=== PATIENT | male | born 1955 | race Caucasian/White ===

== ENCOUNTER 2016-12-13 19:32 | Observation (INO) | payer OTHER ==
[~2016-12-13] VITALS: Ht 175.3 cm; Wt 63.6 kg
[2016-12-13 19:34] VITALS: BP 146/72
--- OUTSIDE RECORDS SUMMARY | 2016-12-13 19:45 | External Medical Summary Rpt ---
Author Author TEODORO Rowan, TEODORO Rowan Organization [employer] Address Unknown Phone Unavailable
--- OUTSIDE RECORDS SUMMARY | 2016-12-13 19:45 | External Medical Summary Rpt | CCD ---
Author Author [employer] Organization [employer] Address Unknown Phone Unavailable Purpose Continuity of Care Document - through 2016
--- OUTSIDE RECORDS SUMMARY | 2016-12-13 19:45 | External Medical Summary Rpt | CCD ---
Demographics Preferred Language Belarusian Marital Status Unknown Jew Affiliation Unknown Race Unknown Ethnic Group Unknown Author Author , TEODORO VALERIO Address Unknown Phone Immunization No patient found.
--- OUTSIDE RECORDS SUMMARY | 2016-12-13 19:45 | External Medical Summary Rpt | CCD ---
Demographics Preferred Language Turkish Marital Status Unknown Yazidism Affiliation Unknown Race Unknown Ethnic Group Unknown Author Author , TEODORO VALERIO Address Unknown Phone Immunization No patient found.
--- OUTSIDE RECORDS SUMMARY | 2016-12-13 19:45 | External Medical Summary Rpt | CCD ---
Author Author , TEODORO VALERIO Address Unknown Phone Purpose Continuity of Care Document - through 2016
--- OUTSIDE RECORDS SUMMARY | 2016-12-13 19:45 | External Medical Summary Rpt | CCD ---
Author Author , TEODORO VALERIO Address Unknown Phone [email or web address] Purpose Continuity of Care Document - through 2016
[2016-12-13 20:11] LABS: HEMOGLOBIN 14.7 g/dL (14.1-18.0); LYMPH # 2.3 K/mm3 (0.7-4.5); LYMPH % 38.1 % (10-50)
--- NOTE | 2016-12-13 20:35 | Emergency Room Report ---
History of Present Illness Time Seen by 2019 Presenting Problem in Triage Pt arrived:Walked Presenting Problem:PT STATES HE HAD JUST FINISHED EATING WHEN HE FELT A WEIGHT OF "500 LBS ON BOTH HIS SHOULDERS THAT CENTERED INTO HIS MID-STERNAL AREA" PT STATES THIS HAS HAPPENED BEFORE AND HE BECAME DIAPHORETIC WHEN IT DID. PT FURTHER STATES HE HAS SPOTS ON HIS LUNGS THAT HIS MD KNOWS ABOUT, AND HE HAS A HISTORY OF COPD. PT ALSO MENTIONS THAT HE HAS TO REPETIVELY CLEAR HIS THROAT TO CLEAR SPUTUM. 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 N Clinical Suspician of Infection? N Mental Status: 1 - Regular (Normal Baseline) Sepsis Risk:Possible Sepsis Risk Have you (or family members/close friends) recently traveled outside the [facility]? N If Yes, where/when: Have you had exposure to infectious disease within the past month? TB? Other? Specify: Comment The patient had a 45 minute episode of chest pain, bilateral arm heaviness, shortness of breath, diaphoresis, and nausea. It started about an hour before he arrived here. Symptoms have now resolved. He had finished eating when it started. He has had 2 previous similar episodes, seen in the emergency department in [place]. The last time was about a year ago. 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 He has never had an angiogram. He does not have any known heart problems. 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 He says he has had a couple of CAT scans, the most recent possibly in spring of this year. Again, at [facility]. He says on his latest CAT scan and they told him the masses had not changed in size. He does not know how big they were. He does not know whether they were described as large or small. He has chronic obstructive pulmonary disease. He is a former smoker. He does not have diabetes, hyperlipidemia, or hypertension. He does have a family history of heart disease. His brother at 45 years old earlier this year from a heart attack. PCP is Dr. Isidro. ALLERGIES Coded Allergies: No Known Allergies (12/13/16) Home Medications Reported Medications Tiotropium [place] (Spiriva Respimat) 2.5 MCG IH ONCE #4 Albuterol Sulfate (Ventolin Hfa) 0.09 MG IH PRN PRN BREATHING #18 History Medical History General Angina: No [place]: No Hypertension? No Hyperlipidemia? Yes CHF? No COPD? No Asthma? No CVA? No Seizures? No Diabetes? No GB Disease: No MRSA? No TB? No Cancer? No Immunization Hx Ped.Immunizations UTD Yes DT/Tetanus Unknown Surgical Hx Previous Surgery?Y URINARY STENT Social History Smoking Hx Smoker: Current Every Day Smoker Tobacco: Yes Type Cigarettes Packs/day < 1 Pack Alcohol Alcohol: No Review of Systems All Other Systems Reviewed and Negative Constitutional diaphoresis Respiratory cough (and congestion, chronic), shortness of breath Cardiovascular chest pain Gastrointestinal nausea Musculoskeletal see HPI (bilateral arm heaviness) Physical Exam Vital Signs Vital Signs Date Time Temp Pulse Resp B/P Pulse O2 O2 Flow FiO2 Ox Delivery Rate 12/13 235 77 12/13 2354 98.2 77 20 157/90 12/13 2354 93 ROOM AIR 12/13 232 98.0 83 24 129/72 93 12/13 2228 83 24 129/72 93 12/13 2119 98.0 75 24 141/81 94 12/13 1934 97.9 109 24 146/72 94 General Appearance no apparent distress Eye Exam - bilateral eye normal exam, bilateral eye PERRL, bilateral eye EOMI Ear, Nose, Throat hearing grossly normal, normal ENT inspection Neck normal inspection, non-tender, supple, full range of motion Respiratory Status Yes: trachea midline, chest symmetrical, non tender chest. No: respiratory distress. Lung Sounds bilateral: normal breath sounds, lungs clear. 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 No Results/Orders Laboratory Tests 12/13/16 2340: Troponin I 0.02 12/13/161929: Lactic Acid 2.0 12/13/161929: Sodium 138, Potassium 3.5, Chloride 102, Carbon Dioxide 25, BUN 18, Creatinine 1.0, Estimated Creat Clear 76, Estimated GFR (MDRD) 76, Glucose 134 H, Calcium 9.6, Total Bilirubin 0.3, AST 23, ALT 34, Alkaline Phosphatase 87, Creatine Kinase 72, CK-MB (CK-2) Rel Index 0.7, CK and CKMB Interp < 0.5, Troponin I < 0.02, Total Protein 8.0, Albumin 4.0, Globulin 4.0 H, Albumin/Globulin Ratio 1.0 L, D-Dimer 304, WBC 6.1, RBC 5.07, Hgb 14.7, Hct 44.2, MCV 87.2, RDW 13.6, Plt Count 318, MPV 7.7, Gran % 45.8, Gran # 2.8, Lymphocytes % 38.1, Monocytes % 7.6, Eosinophils % 7.6, Basophils % 0.9, Lymphocytes # 2.3, Monocytes # 0.5, Eosinophils # 0.5 H, Basophils # 0.1, PUBS MCHC 33.3, MCH 29.0 Current Medication Orders Sig/Gosia Start time Last Medication Dose Route Stop Time Status Admin Sodium Chloride 10 ML PRN PRN 12/13 2314 UNV IV Influenza Virus 0.5 ML PRN PRN 12/13 2299 UNV Vaccine Quadrival IM Nicotine 21 MG DAILYP PRN 12/13 2299 UNV TD Iopamidol 60 ML ONCE ONE 12/13 2229 UNV 12/13 IV 12/13 Sodium Chloride 40 ML ONCE ONE 12/13 2229 UNV 12/13 IV 12/13 Aspirin 324 MG ONCE ONE 12/13 2099 DC 12/13 PO 12/13 Aspirin 0 .STK-MED ONE 12/13 2099 DC .ROUTE Sodium Chloride 1,000 ML .Q1H1M 12/13 2099 DC 12/13 IV 12/13 Sodium Chloride 1,000 ML .STK-MED ONE 12/13 2099 DC IV Sodium Chloride 10 ML PRN PRN 12/13 1944 AC IV 12/14 1932 Orders Procedure Date/time Status [id number] FAT/LO CHO/ATIYA 12/14 B Active TROPONIN I 12/14 07 Active TROPONIN I 12/14 0400 Active Decision to admit 12/13 2246 Active TROPONIN I 12/13 2238 Complete CTA-CHEST 12/[address] CHEST W/PE PROTOCOL REQ 12/13 2053 Active GEN NSG/PT REQ (NOT FOR MEDS!) 12/13 2046 Active CULTURE, BLOOD 12/13 1938 Active LACTIC ACID 12/13 1938 Complete ELECTROCARDIOGRAM REQUEST 12/13 1932 Active CHEST(2 VIEWS-NOT PORTABLE) 12/13 1932 Active IV SALINE LOCK 12/13 1932 Active D-DIMER 12/13 1932 Complete CBC WITH AUTO DIFF 12/13 1932 Complete CARDIAC ENZYMES 12/13 1932 Complete CHEM 12 PROFILE 12/13 1932 Complete ADMIT PATIENT 12/13 UNK Active 12 LEAD EKG-BARBARA (INITIAL) 12/13 UNK Active VITAL SIGNS 12/13 UNK Active 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 UNK Active POM NURSE TJ HOSE ORDER 12/13 UNK Active IV SALINE LOCK 12/13 UNK Active CODE STATUS 12/13 UNK Active PATIENT ACTIVITY ORDER 12/13 UNK Active PHYSICIANS CONSULT 12/13 UNK Active CM/EKG CM/EKG Comments EKG interpreted by Duncan Pulido MD: Rhythm: sinus tachycardia Rate: 109 [place]: normal Ectopy: none Conduction: normal ST Segment Changes: Nonspecific T Wave Changes: none Q Waves: none No evidence of acute ischemia or injury No prior EKGs available for comparison XRAY/CT/US XRAY/CT/US XRAY chest Comment X-ray interpreted by Duncan Pulido M.D.: Approximately 8 cm symmetric, round suprahilar masses bilaterally. No old x-rays for comparison. CT chest Comment CT scan interpreted by [facility] radiologist. Faxed report received and reviewed: No definite pulmonary emboli. 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 Emphysematous changes in the lungs. No acute consolidation. Progress - 9:37 PM: Nuclear stress test result from [facility] 04/10/16: No wall motion abnormalities. No electrocardiogram changes. Calculated ejection fraction 52 percent. Perfusion imaging showed a small anterior defect which is mild in intensity and small in size and is also seen in [place]. This represents 4 percent of the myocardium. It is mostly fixed, however there is a small amount of reversibility. 10:45 PM: I have discussed the case with Dr. Ervin for Dr. Isidro who agrees to admit the patient to the hospital. We discussed the patient's clinical information, including history, exam, laboratory and radiology results and ED course. Per hospital procedure, I will write temporary bridge inpatient orders on the patient. Specific orders requested by the admitting physician: Serial cardiac enzymes, cardiology consult 10:50 PM: Case discussed with Dr. Bourgeois. Departure Departure Disposition Still a Patient Clinical Impression Primary Impression: Chest pain Qualifiers: Chest pain type: precordial pain Qualified Code: R07.2 - Precordial pain Condition STABLE Referrals [place] Isidro MD (Family) ED Critical Care Critical Care No at [id number]
--- NOTE | 2016-12-13 20:35 | Emergency Room Report ---
History of Present Illness Time Seen by 2019 Presenting Problem in Triage Pt arrived:Walked Presenting Problem:PT STATES HE HAD JUST FINISHED EATING WHEN HE FELT A WEIGHT OF "500 LBS ON BOTH HIS SHOULDERS THAT CENTERED INTO HIS MID-STERNAL AREA" PT STATES THIS HAS HAPPENED BEFORE AND HE BECAME DIAPHORETIC WHEN IT DID. PT FURTHER STATES HE HAS SPOTS ON HIS LUNGS THAT HIS MD KNOWS ABOUT, AND HE HAS A HISTORY OF COPD. PT ALSO MENTIONS THAT HE HAS TO REPETIVELY CLEAR HIS THROAT TO CLEAR SPUTUM. 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 N Clinical Suspician of Infection? N Mental Status: 1 - Regular (Normal Baseline) Sepsis Risk:Possible Sepsis Risk Have you (or family members/close friends) recently traveled outside the [facility]? N If Yes, where/when: Have you had exposure to infectious disease within the past month? TB? Other? Specify: Comment The patient had a 45 minute episode of chest pain, bilateral arm heaviness, shortness of breath, diaphoresis, and nausea. It started about an hour before he arrived here. Symptoms have now resolved. He had finished eating when it started. He has had 2 previous similar episodes, seen in the emergency department in [place]. The last time was about a year ago. 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 He has never had an angiogram. He does not have any known heart problems. 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 He says he has had a couple of CAT scans, the most recent possibly in spring of this year. Again, at [facility]. He says on his latest CAT scan and they told him the masses had not changed in size. He does not know how big they were. He does not know whether they were described as large or small. He has chronic obstructive pulmonary disease. He is a former smoker. He does not have diabetes, hyperlipidemia, or hypertension. He does have a family history of heart disease. His brother at 45 years old earlier this year from a heart attack. PCP is Dr. Isidro. ALLERGIES Coded Allergies: No Known Allergies (12/13/16) Home Medications Reported Medications Tiotropium [place] (Spiriva Respimat) 2.5 MCG IH ONCE #4 Albuterol Sulfate (Ventolin Hfa) 0.09 MG IH PRN PRN BREATHING #18 History Medical History General Angina: No [place]: No Hypertension? No Hyperlipidemia? Yes CHF? No COPD? No Asthma? No CVA? No Seizures? No Diabetes? No GB Disease: No MRSA? No TB? No Cancer? No Immunization Hx Ped.Immunizations UTD Yes DT/Tetanus Unknown Surgical Hx Previous Surgery?Y URINARY STENT Social History Smoking Hx Smoker: Current Every Day Smoker Tobacco: Yes Type Cigarettes Packs/day < 1 Pack Alcohol Alcohol: No Review of Systems All Other Systems Reviewed and Negative Constitutional diaphoresis Respiratory cough (and congestion, chronic), shortness of breath Cardiovascular chest pain Gastrointestinal nausea Musculoskeletal see HPI (bilateral arm heaviness) Physical Exam Vital Signs Vital Signs Date Time Temp Pulse Resp B/P Pulse O2 O2 Flow FiO2 Ox Delivery Rate 12/13 235 77 12/13 2354 98.2 77 20 157/90 12/13 2354 93 ROOM AIR 12/13 232 98.0 83 24 129/72 93 12/13 2228 83 24 129/72 93 12/13 2119 98.0 75 24 141/81 94 12/13 1934 97.9 109 24 146/72 94 General Appearance no apparent distress Eye Exam - bilateral eye normal exam, bilateral eye PERRL, bilateral eye EOMI Ear, Nose, Throat hearing grossly normal, normal ENT inspection Neck normal inspection, non-tender, supple, full range of motion Respiratory Status Yes: trachea midline, chest symmetrical, non tender chest. No: respiratory distress. Lung Sounds bilateral: normal breath sounds, lungs clear. 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 No Results/Orders Laboratory Tests 12/13/16 2340: Troponin I 0.02 12/13/161929: Lactic Acid 2.0 12/13/161929: Sodium 138, Potassium 3.5, Chloride 102, Carbon Dioxide 25, BUN 18, Creatinine 1.0, Estimated Creat Clear 76, Estimated GFR (MDRD) 76, Glucose 134 H, Calcium 9.6, Total Bilirubin 0.3, AST 23, ALT 34, Alkaline Phosphatase 87, Creatine Kinase 72, CK-MB (CK-2) Rel Index 0.7, CK and CKMB Interp < 0.5, Troponin I < 0.02, Total Protein 8.0, Albumin 4.0, Globulin 4.0 H, Albumin/Globulin Ratio 1.0 L, D-Dimer 304, WBC 6.1, RBC 5.07, Hgb 14.7, Hct 44.2, MCV 87.2, RDW 13.6, Plt Count 318, MPV 7.7, Gran % 45.8, Gran # 2.8, Lymphocytes % 38.1, Monocytes % 7.6, Eosinophils % 7.6, Basophils % 0.9, Lymphocytes # 2.3, Monocytes # 0.5, Eosinophils # 0.5 H, Basophils # 0.1, PUBS MCHC 33.3, MCH 29.0 Current Medication Orders Sig/Gosia Start time Last Medication Dose Route Stop Time Status Admin Sodium Chloride 10 ML PRN PRN 12/13 2314 UNV IV Influenza Virus 0.5 ML PRN PRN 12/13 2299 UNV Vaccine Quadrival IM Nicotine 21 MG DAILYP PRN 12/13 2299 UNV TD Iopamidol 60 ML ONCE ONE 12/13 2229 UNV 12/13 IV 12/13 Sodium Chloride 40 ML ONCE ONE 12/13 2229 UNV 12/13 IV 12/13 Aspirin 324 MG ONCE ONE 12/13 2099 DC 12/13 PO 12/13 Aspirin 0 .STK-MED ONE 12/13 2099 DC .ROUTE Sodium Chloride 1,000 ML .Q1H1M 12/13 2099 DC 12/13 IV 12/13 Sodium Chloride 1,000 ML .STK-MED ONE 12/13 2099 DC IV Sodium Chloride 10 ML PRN PRN 12/13 1944 AC IV 12/14 1932 Orders Procedure Date/time Status [id number] FAT/LO CHO/ATIYA 12/14 B Active TROPONIN I 12/14 07 Active TROPONIN I 12/14 0400 Active Decision to admit 12/13 2246 Active TROPONIN I 12/13 2238 Complete CTA-CHEST 12/[address] CHEST W/PE PROTOCOL REQ 12/13 2053 Active GEN NSG/PT REQ (NOT FOR MEDS!) 12/13 2046 Active CULTURE, BLOOD 12/13 1938 Active LACTIC ACID 12/13 1938 Complete ELECTROCARDIOGRAM REQUEST 12/13 1932 Active CHEST(2 VIEWS-NOT PORTABLE) 12/13 1932 Active IV SALINE LOCK 12/13 1932 Active D-DIMER 12/13 1932 Complete CBC WITH AUTO DIFF 12/13 1932 Complete CARDIAC ENZYMES 12/13 1932 Complete CHEM 12 PROFILE 12/13 1932 Complete ADMIT PATIENT 12/13 UNK Active 12 LEAD EKG-BARBARA (INITIAL) 12/13 UNK Active VITAL SIGNS 12/13 UNK Active 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 POM NURSE TJ HOSE ORDER 12/13 UNK Active IV SALINE LOCK 12/13 UNK Active CODE STATUS 12/13 UNK Active PATIENT ACTIVITY ORDER 12/13 UNK Active PHYSICIANS CONSULT 12/13 UNK Active CM/EKG CM/EKG Comments EKG interpreted by Duncan Pulido MD: Rhythm: sinus tachycardia Rate: 109 [place]: normal Ectopy: none Conduction: normal ST Segment Changes: Nonspecific T Wave Changes: none Q Waves: none No evidence of acute ischemia or injury No prior EKGs available for comparison XRAY/CT/US XRAY/CT/US XRAY chest Comment X-ray interpreted by Duncan Pulido M.D.: Approximately 8 cm symmetric, round suprahilar masses bilaterally. No old x-rays for comparison. CT chest Comment CT scan interpreted by [facility] radiologist. Faxed report received and reviewed: No definite pulmonary emboli. 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 Emphysematous changes in the lungs. No acute consolidation. Progress - 9:37 PM: Nuclear stress test result from [facility] 04/10/16: No wall motion abnormalities. No electrocardiogram changes. Calculated ejection fraction 52 percent. Perfusion imaging showed a small anterior defect which is mild in intensity and small in size and is also seen in [place]. This represents 4 percent of the myocardium. It is mostly fixed, however there is a small amount of reversibility. 10:45 PM: I have discussed the case with Dr. Ervin for Dr. Isidro who agrees to admit the patient to the hospital. We discussed the patient's clinical information, including history, exam, laboratory and radiology results and ED course. Per hospital procedure, I will write temporary bridge inpatient orders on the patient. Specific orders requested by the admitting physician: Serial cardiac enzymes, cardiology consult 10:50 PM: Case discussed with Dr. Bourgeois. Departure Departure Disposition Still a Patient Clinical Impression Primary Impression: Chest pain Qualifiers: Chest pain type: precordial pain Qualified Code: R07.2 - Precordial pain Condition STABLE Referrals [place] Isidro MD (Family) ED Critical Care Critical Care No at 0308
[2016-12-13 20:45] LABS: BUN 18 mg/dL (7-18)
[2016-12-13 20:46] LABS: GFR (ESTIMATED) 76 ML/MIN (>60)
--- OUTSIDE RECORDS SUMMARY | 2016-12-13 22:52 | External Medical Summary Rpt | CCD ---
Author Author , TEODORO Organization [facility] Address Unknown Phone [email or web address] Purpose Continuity of Care Document - 04-14-2016 through 2016 Problems Code Diagnosis DOS Provider Status R06.00 DYSPNEA, 04-14-2016 UNSPECIFIED Results Labs Lab Lab Date Result Refere Interp Status Commen Order Detail nces retati t Range on Comprehensive metabolic panel (12-13-2016 19:30) Protein = 8.0 6.4-8.2 complet total 017 gm/dL ed ser/hannah 19:30 s ALT = 34 12-78 complet (SGPT) 017 U/L ed ser/hannah 19:30 s Serum = 23 15-37 complet or 017 U/L ed plasma 19:30 asparta te aminotr ansfera Serum = 138 136-145 complet sodium 017 mmoL/L ed measure 19:30 ment Serum = 3.5 3.5-5.1 complet potassi 017 mmoL/L ed um 19:30 measure ment Serum = 134 74-106 complet or 017 mg/dL ed plasma 19:30 glucose measure ment (mas Serum = 4.0 1.3-3.2 complet globuli 017 gm/dL ed n 19:30 measure ment (mass/v olume) Estimat = 76 >60 complet ed 017 ML/MIN ed glomeru 19:30 lar filtrat ion rate (GF Comment: REFERENCE RANGE: >60 ML/MIN/1.73 SQUARE METERS Comment: If this patient is -[place] Citizen, then multiply the Comment: result by 1.210. Estimat = 76 50-200 complet ion of 017 ML/MIN ed creatin 19:30 ine renal clearan ce Serum = 1.0 0.70-1. complet or 017 mg/dL 30 ed plasma 19:30 creatin ine measure ment ( Carbon = 25 21.0-32 complet dioxide 017 mmoL/L .0 ed 19:30 measure ment Serum = 102 98-107 complet or 017 mmoL/L ed plasma 19:30 chlorid e measure ment (mo Serum = 9.6 8.5-10. complet or 017 mg/dL 1 ed plasma 19:30 calcium measure ment (mas Serum = 18 7-18 complet or 017 mg/dL ed plasma 19:30 urea nitroge n measure men Serum = 0.3 0.2-1.0 complet or 017 mg/dL ed plasma 19:30 total bilirub in measure m Serum = 87 46-116 complet or 017 U/L ed plasma 19:30 alkalin e phospha tase maricruz Serum = 4.0 3.4-5.0 complet or 017 gm/dL ed plasma 19:30 albumin measure ment (mas Serum = 1.0 1.1-1.8 complet or 017 ed plasma 19:30 albumin /globul in mass ra Cardiac enzymes (12-13-2016 19:30) Serum < 0.02 0.00-0. complet or 017 ng/mL 06 ed plasma 19:30 troponi n i.cardi ac measu Serum = 72 39-308 complet or 017 U/L ed plasma 19:30 creatin e kinase measure m Serum < 0.5 0.0-3.6 complet or 017 ng/mL ed plasma 19:30 creatin e kinase MB measu Serum = 0.7 0-4.0 complet or 017 U/L ed plasma 19:30 creatin e kinase MB (CK-M D-dimer (12-13-2016 19:30) D-dimer = 304 0-400 complet 017 ng/mL ed 19:30 Comment: The D-Dimer values are presented in units of mass(ng/mL) of Comment: D-Dimer units(DDU). Comment: Comment: This test has been FDA approved as an aid in the assessment Comment: and evaluation of suspected DIC, and thromboembolic events Comment: including PE and DVT. However, it does not have approval Comment: for cut-off values for the exclusion of these conditions. Blood lactic acid measurement (moles/vol (12-13-2016 19:30) Blood = 2.0 0.4-2.0 complet lactic 017 mmol/L ed acid 19:30 measure ment (moles/ vol CBC w auto diff (12-13-2016 19:30) Blood = 6.1 4.8-10. complet leukocy 017 K/MM3 8 ed lisa 19:30 count (number /volume ) Automat = 13.6 11.5-17 complet ed 017 % .5 ed erythro 19:30 cyte distrib ution width Red = 5.07 4.6-6.2 complet blood 017 M/mm3 ed cell 19:30 count Blood = 318 142-424 complet platele 017 K/mm3 ed t count 19:30 Automat = 7.7 7.4-10. complet ed 017 fl 4 ed blood 19:30 platele t mean volume maricruz [place] % = 7.6 % 1.7-9.3 complet 017 ed 19:30 Absolut = 0.5 0.1-1.0 complet e 017 K/mm3 ed monocyt 19:30 e count Automat = 87.2 82.2-97 complet ed 017 fl .8 ed erythro 19:30 cyte mean corpusc ular v Automat = 33.3 31.8-35 complet ed 017 g/dl .4 ed erythro 19:30 cyte mean corpusc ular h Mean = 29.0 27-31.2 complet corpusc 017 pg ed ular 19:30 hemoglo bin (MCH) determ Lymphoc = 38.1 10-50 complet yte 017 % ed count, 19:30 blood, automat ed Absolut = 2.3 0.7-4.5 complet e 017 K/mm3 ed lymphoc 19:30 yte count Blood = 14.7 14.1-18 complet hemoglo 017 g/dL .0 ed bin 19:30 measure ment (mass/v olum Blood = 44.2 42.0-52 complet hematoc 017 % .0 ed rit 19:30 (volume fractio n) Granulo = 45.8 37.0-80 complet cyte 017 % .0 ed percent 19:30 age Blood = 2.8 1.3-8.0 complet granulo 017 K/mm3 ed cytes 19:30 automat ed count (numb Automat = 7.6 % 0.1-12. complet ed 017 0 ed blood 19:30 eosinop hils/10 0 leukocy t Automat = 0.5 0.0-0.4 complet ed 017 K/mm3 ed blood 19:30 eosinop hil count Baso % = 0.9 % 0.1-2.0 complet 017 ed 19:30 Automat = 0.1 0-0.2 complet ed 017 K/MM3 ed blood 19:30 basophi l count (count/ vo
--- OUTSIDE RECORDS SUMMARY | 2016-12-13 22:52 | External Medical Summary Rpt | CCD ---
Demographics Preferred Language Chinese Marital Status Unknown Advent Affiliation Unknown Race Unknown Ethnic Group Unknown Author Author , TEODORO VALERIO Address Unknown Phone Immunization Unable to retrieve immunization data due to connection failure with Immunization Registry. Please try again later.
--- OUTSIDE RECORDS SUMMARY | 2016-12-13 22:52 | External Medical Summary Rpt | CCD ---
Author Author , TEODORO Organization [facility] Address Unknown Phone , [employer] Purpose Continuity of Care Document - 04-14-2016 [...] SQUARE METERS Comment: If this patient is -[place], then multiply the Comment: result by 1.210. [...] blood 19:30 platele t mean volume maricruz [place] % = 7.6 % 1.7-9.3 complet 017 [...]
--- OUTSIDE RECORDS SUMMARY | 2016-12-13 22:52 | External Medical Summary Rpt | CCD ---
Demographics Preferred Language Greenlandic Marital Status Unknown Christian Affiliation Unknown Race Unknown Ethnic Group Unknown Author Author , TEODORO VALERIO Address Unknown Phone Immunization Unable to retrieve immunization data due to connection failure with Immunization Registry. Please try again later.
--- OUTSIDE RECORDS SUMMARY | 2016-12-13 22:53 | External Medical Summary Rpt ---
Author Author TEODORO Rowan, [employer] Organization [employer] Address Unknown Phone Unavailable Results Fibrin D-dimer FEU [Mass/volume] in Platelet poor plasma Observa Value Referen Units Interpr Notes Date ti ce etation Range Fibrin 0 - 400 ng/mL Normal The Dec 13 D-dimer D-Dimer 2016 7:30 FEU values PM [Mass/vol are ume] in presented Platelet in units poor of plasma mass(ng/m L) ofD-Dimer units(DDU ).This test has been FDA approved as an aid in the assessmen tand evaluatio n of suspected DIC, and thromboem bolic eventsinc luding PE and DVT. However, it does not have approvalf or cut-off values for the exclusion of these condition s. Lactate [Moles/volume] in Blood Observa Value Referen Units Interpr Notes Date ti ce etation Range Lactate 0.4 - 2.0 mmol/L Normal No Dec 13 [Moles/vo informati 2016 7:30 lume] in on in PM Blood source data CBC W Auto Differential panel in Blood Observa Value Referen Units Interpr Notes Date ti ce etation Range Basophils 0 - 0.2 K/MM3 Normal No Dec 13 inform2016 7:30 [#/volume on in PM ] in source Blood by data Automated count Basophils 0.1 - 2.0 % Normal No Dec 13 informati 2016 7:30 leukocyte on in PM s in source Blood by data Automated count Eosinophi 0.0 - 0.4 K/mm3 High No Dec 13 ls informati 2016 7:30 [#/volume on in PM ] in source Blood by data Automated count Eosinophi 0.1 - % Normal No Dec 13 ls/100 12.0 informati 2016 7:30 leukocyte on in PM s in source Blood by data Automated count Granulocy 1.3 - 8.0 K/mm3 Normal No Dec 13 lisa informati 2016 7:30 [#/volume on in PM ] in source Blood by data Automated count Granulocy 37.0 - % Normal No Dec 13 lisa/100 80.0 informati 2016 7:30 leukocyte on in PM s in source Blood by data Automated count Hematocri 42.0 - % Normal No Dec 13 t [Volume 52.0 informati 2016 7:30 on in PM Fraction] source of Blood data Hemoglobi 14.1 - g/dL Normal No Dec 13 n 18.0 informati 2016 7:30 [Mass/vol on in PM ume] in source Blood data Lymphocyt 0.7 - 4.5 K/mm3 Normal No Dec 13 es informati 2016 7:30 [#/volume on in PM ] in source Unspecifi data ed specimen by Automated count Lymphocyt 10 - 50 % Normal No Dec 13 es informati 2016 7:30 [#/volume on in PM ] in source Unspecifi data ed specimen by Automated count Erythrocy 27 - 31.2 pg Normal Dec 13 te mean informati 2016 7:30 corpuscul on in PM ar source hemoglobi data n [Entitic mass] Erythrocy 31.8 - g/dl Normal Dec 13 te mean 35.4 informati 2016 7:30 corpuscul on in PM ar source hemoglobi data n concentra tion [Mass/vol ume] by Automated count Erythrocy 82.2 - fl Normal Dec 13 te mean 97.8 informati 2016 7:30 corpuscul on in PM ar volume source [Entitic data volume] by Automated count Monocytes 0.1 - 1.0 K/mm3 Normal Dec 13 informati 2016 7:30 [#/volume on in PM ] in source Blood by data Automated count Monocytes 1.7 - 9.3 % Normal No Dec 13 /100 informati 2017 7:30 leukocyte on in PM s in source Blood by data Automated count Platelet 7.4 - fl Normal No Dec 13 mean 10.4 informati 2017 7:30 volume on in PM [Entitic source volume] data in Blood by Automated count Platelets 142 - 424 K/mm3 Normal No Dec 13 informati 2017 7:30 [#/volume on in PM ] in source Blood data Erythrocy 4.6 - 6.2 M/mm3 Normal No Dec 13 lisa informati 2016 7:30 [#/volume on in PM ] in source Amniotic data fluid Erythrocy 11.5 - % Normal No Nov 5 te 17.5 informati 2017 7:30 distribut on in PM ion width source [Entitic data volume] by Automated count Leukocyte 4.8 - K/MM3 Normal No Nov 5 s 10.8 informati 2017 7:30 [#/volume on in PM ] in source Blood data
[2016-12-13 23:55] VITALS: BP 157/90
[2016-12-14] VITALS (14 sets, daily range): BP systolic 103–157; BP diastolic 54–90
[2016-12-14] MEDS ORDERED: VENTOLIN H0.09 MG/Ac IH (00:10)
[2016-12-14] MEDS ORDERED: SPIRIVA RE2.5 MCG/Ac IH (00:10)
--- NOTE | 2016-12-14 05:45 | RADIOLOGY REPORT PS360 ---
CTA-CHEST HISTORY: Chest pain with cough and shortness of breath with elevated d-dimer CHEST PAIN, SOA ORDERING PHYSICIAN: Washington Isidro MD PATIENT AGE: 61 years TECHNIQUE: Helical acquisition obtained following the bolus administration of 60 mL of Isovue 370 followed by a saline bolus. Axial, sagittal, and coronal reformatted images are generated and reviewed. COMPARISON: None FINDINGS: No evidence of pulmonary embolus. No evidence of aortic aneurysm or dissection. There are bilateral upper lobe and perihilar pulmonary masses containing some coarse calcification. These involve the proximal aspect of the pulmonary arteries causing some mild arterial narrowing in both upper lobes. These measure up to 8 x 8 cm on the right and 7 x 7 cm on the left.. Multiple additional smaller pulmonary nodules are present in both upper and lower lobes mainly central a few peripheral nodules are also present as well.. There is mild reticulonodular interstitial prominence with some scattered areas of atelectasis or paralysis in the upper lobes and lower lobes. There is hyperinflation with attenuation of the peripheral pulmonary vessels consistent with obstructive chronic bronchitis. No acute bony anomalies. No pleural effusion. No lobar consolidation or collapse. Upper abdominal images are unremarkable. There are some small nodes present within the mediastinum. Cannot distinguish the upper lobe masses from perihilar adenopathy. Subcarinal enlarged lymph nodes are present measuring up to 2 cm. IMPRESSION: 1. No obvious pulmonary embolus. 2. Large bilateral upper lobe and perihilar masses with additional smaller nodules noted bilaterally. This may represent progressive massive fibrosis. Differential diagnosis includes silicosis, lung cancer, sarcoidosis, or talc granulomatosis. Suggest correlation with old films if available 3. The perihilar masses encase and narrow the pulmonary artery branches. 4. COPD
--- NOTE | 2016-12-14 06:21 | RADIOLOGY REPORT PS360 ---
CHEST(2 VIEWS-NOT PORTABLE) HISTORY: Chest pain CP ORDERING PHYSICIAN: Emir Camarena MD PATIENT AGE: 61 years COMPARISON: None available FINDINGS: There is normal heart size. There are bilateral upper lobe/perihilar masses measuring up to 8 x 7 cm on the right and 7.6 x 9 cm on the left. There is diffuse reticulonodular opacities noted. Consolidation is present in the left upper lobe lateral to the hilar mass. There is hyperinflation. No acute bony anomalies. IMPRESSION: 1. Bilateral perihilar and upper lobe masses consistent with progressive massive fibrosis. Please correlate with old studies if available. Pulmonary consult suggested. 2. COPD
--- NOTE | 2016-12-14 08:03 | CONSULT NOTE ---
Standard Demographics Patient Demo Date of Consultation: 12/14/16 Referring Provider: Emily Ervin MD Reason for Consultation: Chest pain, SOA PRIMARY DIAGNOSIS: CHEST PAIN Problem list Problem list: 1. 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 A. Reportedly CAT scans of the last 2 years have shown no significant progression of the nodules. 2. Tobacco use discontinued about 2 years ago 3. Significant family history of coronary disease with a brother that at age 57 from a myocardial infarction. 4. History of kidney stones requiring urinary stenting. 5. Hyperlipidemia History of present illness: History of present illness: 61-year-old white male admitted to the hospital due to acute onset of shortness of breath associated with heaviness in both shoulders and arms which it did include some substernal chest pressure. This occurred after eating. This was associated with diaphoresis. He denies any recent fever, chills, nausea or vomiting. Patient has had some progressive increasing shortness of breath over the last several months. Recently had a stress test earlier this year in [place], [place] which shows abnormality in the anterior apical area. Patient was admitted for observation. Cardiac troponins have returned normal. Electrocardiogram shows sinus tachycardia with some nonspecific ST-T abnormalities. Cardiology consulted for evaluation. Past Medical History: General: Hypertension No CVA No Seizures No TB No COPD No Asthma No Diabetes No Angina No OH No Hyperlipidemia Yes Urinary No Cancer No Rheumatic H.D. No Ulcers No MRSA No GB Disease No Other KIDNEY STONE Past Surgical HX: Previous Surgery?Y URINARY STENT Allergies Coded Allergies: No Known Allergies (12/13/16) Home medications: Reported Medications Tiotropium [place] (Spiriva Respimat) 2.5 MCG IH ONCE #4 Albuterol Sulfate (Ventolin Hfa) 0.09 MG IH PRN PRN BREATHING #18 Current Medications: Current Medications Sodium Chloride 10 ML PRN PRN IV Influenza Virus Vaccine Quadrival 0.5 ML PRN PRN IM Nicotine 21 MG DAILYP PRN TD Iopamidol 60 ML ONCE ONE IV (DC) Sodium Chloride 40 ML ONCE ONE IV (DC) Aspirin 324 MG ONCE ONE PO (DC) Aspirin 0 .STK-MED ONE .ROUTE (DC) Sodium Chloride 1,000 ML .Q1H1M IV (DC) Sodium Chloride 1,000 ML .STK-MED ONE IV (DC) Sodium Chloride 10 ML PRN PRN IV Immunization HX Ped.Immunizations UTD Yes DT/Tetanus Unknown Flu Refused Pneumonia Never Had TB Test in last year No Family history Family HX Family Hx Insignificant No Diabetes Yes CAD Yes Hypertension Yes Hyperlipidemia Yes Cancer No TB No Social Hx: Smoking HX Tobacco Yes Type Cigarettes Packs/day < 1 PACK Are you/the child exposed to second-hand smoke: Yes Alcohol Alcohol: No Hx of Drug Use Drug Use? No Patien't marital status is Review of systems: Constitutional No: no symptoms reported. Respiratory shortness of breath, SOB with excertion. Cardiovascular see HPI, chest pain Gastrointestinal/Abdominal No no symptoms reported Genitourinary No: no symptoms reported. Musculoskeletal No: no symptoms reported. Neurological No: no symptoms reported. Exam: Admission Vital Signs: 1ST Vital Signs Result Date Time Pulse Ox 94 12/13 1933 B/P 146/72 12/13 1933 Temp 97.9 12/13 1933 Pulse 109 12/13 1933 Resp 24 12/13 1933 O2 Delivery ROOM AIR 12/13 2354 Last Vital Signs: Vital Signs Result Date Time Pulse Ox 95 12/14 429 B/P 110/54 12/14 429 O2 Delivery ROOM AIR 12/14 429 Temp 97.9 12/14 429 Pulse 81 12/14 429 Resp 16 12/14 429 Exam General appearance: alert, awake, no acute distress Neck: no carotid bruit, no JVD Cardiovascular: regular rate & rhythm, no murmur Respiratory: decreased breath sounds bilaterally without rales or wheezing. ABD: soft, no tenderness Extremities: moves all, no peripheral edema Neuro: alert, intact, oriented Laboratory data: Laboratory Tests 12/14/16 0715: Troponin I < 0.02 12/14/16 0310: Troponin I 0.02 12/13/160: Troponin I 0.02 12/13/161929: Lactic Acid 2.0 12/13/161929: Sodium 138, Potassium 3.5, Chloride 102, Carbon Dioxide 25, BUN 18, Creatinine 1.0, Estimated Creat Clear 76, Estimated GFR (MDRD) 76, Glucose 134 H, Calcium 9.6, Total Bilirubin 0.3, AST 23, ALT 34, Alkaline Phosphatase 87, Creatine Kinase 72, CK-MB (CK-2) Rel Index 0.7, CK and CKMB Interp < 0.5, Troponin I < 0.02, Total Protein 8.0, Albumin 4.0, Globulin 4.0 H, Albumin/Globulin Ratio 1.0 L, D-Dimer 304, WBC 6.1, RBC 5.07, Hgb 14.7, Hct 44.2, MCV 87.2, RDW 13.6, Plt Count 318, MPV 7.7, Gran % 45.8, Gran # 2.8, Lymphocytes % 38.1, Monocytes % 7.6, Eosinophils % 7.6, Basophils % 0.9, Lymphocytes # 2.3, Monocytes # 0.5, Eosinophils # 0.5 H, Basophils # 0.1, PUBS MCHC 33.3, MCH 29.0 Microbiology Date/Time Procedure - Status Source Growth 12/13 1929 Anaerobic Blood Culture - RECD BLOOD 12/13 1929 Aerobic Blood Culture - RECD BLOOD 12/13 1929 Anaerobic Blood Culture - RECD BLOOD 12/13 1929 Aerobic Blood Culture - RECD BLOOD Plan Assessment: 1. Shortness of breath with chest pain, concern for unstable angina pectoris in patient with significant tobacco history, family history and abnormal stress test earlier this year. 2. Bilateral pulmonary nodules 3. Chronic obstructive pulmonary disease with history of tobacco use Plan: Discussed patient's symptoms, lab for reports and stress test results. Recommend proceeding with LEFT heart catheterization. Discussed risks and benefits with the patient, he agrees to proceed today. at 0813
[2016-12-14] MEDS ORDERED: SPIRIVA18 MCG IH (09:23)
--- NOTE | 2016-12-14 09:35 | HISTORY AND PHYSICAL REPORT ---
History and Physical ([facility]) Date of admission: 12/13/16 Chief complaint: Chest pain History: History of Present Illness: Mr. Bethea is a 61yo WM with a history of COPD and HLP who was admitted to the hospital due to acute onset of shortness of breath associated with heaviness in both shoulders and arms which it did include some substernal chest pressure. This occurred after eating yesterday. This was associated with diaphoresis. He denies any recent fever, chills, nausea, or vomiting. Patient has had some progressive increasing shortness of breath over the last several months. He recently had a stress test earlier this year in [place], [place] which showed abnormality in the anterior apical area. The patient was admitted for observation. This morning, his cardiac troponins have returned normal. Cardiology was consulted for evaluation and plan for left heart cath today. Past Medical History: Medical History: CAD? No Angina: No KS: No Hypertension? No Hyperlipidemia? Yes CHF? No DVT? No PE? No COPD? No Asthma? No Anemia? No GERD? No Gastric ulcers? No GI Bleed? No Hernia? No Thyroid Problems? No Hypothyroidism? No CVA? No Seizures? No Diabetes? No Renal Insuffiency? No UTI? No Stones? Yes BPH? No GB Disease: No Nephritic Syndrome? No Asplenia? No Hepatitis? No Sickle Cell Disease? No Arthritis? No Migraines? No Cataracts? No Glaucoma? No MRSA? No HIV? No TB? No Anxiety? No Depression? No Cancer? No Surgical history: Previous Surgery? 1. URINARY STENT Medications: Reported Medications Tiotropium [place] (Spiriva) 18 MCG IH DAILY Albuterol Sulfate (Ventolin Hfa) 0.09 MG IH PRN PRN BREATHING #18 Discontinued Reported Medications Tiotropium [place] (Spiriva Respimat) 2.5 MCG IH ONCE #4 DC: 12/14/16 0923 Allergies: Coded Allergies: No Known Allergies (12/13/16) Family History: Family history: Postive for: CAD, DM. Social History: Smoking Hx Tobacco: Yes Smoker: Former Smoker Type: Cigarettes Packs/day: < 1 Pack Are you exposed to second hand Yes Alcohol: Alcohol: No Hx of Drug Use: Drug Use? No Patien't marital status is: Patient's support system is: good Patient's occupation: Retired Recent travel: none Review of Systems: Patient unresponsive? No Constitutional No: fatigue, weak. ENT No: nasal congestion, sore throat. Cardiovascular Positive for: chest pain. No: edema, palpitations. Respiratory Positive for: non-productive. No: dyspnea on exertion, pleuritic pain, wheezing. GI No: abdominal pain, constipation, diarrhea, hematochezia, nausea, vomitting. (male) No: frequency, hematuria. Skin Positive for: rash. Neurological No: confusion, dizziness, gait problem, light headed, numbness, slurred speech, syncope, vision change. Immune/allergy Positive for: itching. Eyes No: blurry vision, vision loss. Musculoskeletal No: extremity pain, joint pain. Psychiatric No: confused, change in mental status. Physical Exam: Vital signs: 1ST Vital Signs Result Date Time Pulse Ox 94 12/13 1933 B/P 146/72 12/13 1933 Temp 97.9 12/13 1933 Pulse 109 12/13 1933 Resp 24 12/13 1933 O2 Delivery ROOM AIR 12/13 2354 Exam: General appearance: alert, awake, no acute distress Eyes: anicteric, PERRLA ENT: mucous membranes moist, pharynx normal Neck: non-tender, supple, no LAD Cardiovascular: regular rate & rhythm, normal peripheral pulses Respiratory: good air movement, generally diminished ABD: non-distended, no rebound, soft, no tenderness, no guarding, no organomegaly, no palpable mass, bowel sounds present Extremities: moves all, no peripheral edema, warm, no calf tenderness Skin: dry, warm, rash (bilateral buttocks) Neuro: alert, oriented, speech clear, no focal deficit Lab data: Labs: Laboratory Tests 12/14/16 0715: Troponin I < 0.02 12/14/16 0310: Troponin I 0.02 12/13/16 2340: Troponin I 0.02 12/13/161929: Lactic Acid 2.0 12/13/161929: Sodium 138, Potassium 3.5, Chloride 102, Carbon Dioxide 25, BUN 18, Creatinine 1.0, Estimated Creat Clear 76, Estimated GFR (MDRD) 76, Glucose 134 H, Calcium 9.6, Total Bilirubin 0.3, AST 23, ALT 34, Alkaline Phosphatase 87, Creatine Kinase 72, CK-MB (CK-2) Rel Index 0.7, CK and CKMB Interp < 0.5, Troponin I < 0.02, Total Protein 8.0, Albumin 4.0, Globulin 4.0 H, Albumin/Globulin Ratio 1.0 L, D-Dimer 304, WBC 6.1, RBC 5.07, Hgb 14.7, Hct 44.2, MCV 87.2, RDW 13.6, Plt Count 318, MPV 7.7, Gran % 45.8, Gran # 2.8, Lymphocytes % 38.1, Monocytes % 7.6, Eosinophils % 7.6, Basophils % 0.9, Lymphocytes # 2.3, Monocytes # 0.5, Eosinophils # 0.5 H, Basophils # 0.1, PUBS MCHC 33.3, MCH 29.0 Microbiology 12/13 1929 BLOOD: Anaerobic Blood Culture - RECD 12/13 1929 BLOOD: Aerobic Blood Culture - RECD 12/13 1929 BLOOD: Anaerobic Blood Culture - RECD 12/13 1929 BLOOD: Aerobic Blood Culture - RECD Radiology results: Results: 12/13/16 CXR: 1. Bilateral perihilar and upper lobe masses consistent with progressive massive fibrosis. Please correlate with old studies if available. Pulmonary consult suggested. 2. COPD 12/13/16 CTA chest: 1. No obvious pulmonary embolus. 2. Large bilateral upper lobe and perihilar masses with additional smaller nodules noted bilaterally. This may represent progressive massive fibrosis. Differential diagnosis includes silicosis, lung cancer, sarcoidosis, or talc granulomatosis. Suggest correlation with old films if available. 3. The perihilar masses encase and narrow the pulmonary artery branches. 4. COPD. Diagnosis(es): 1. Chest pain 2. COPD (chronic obstructive pulmonary disease) Plan: for left heart cath today. (JUAN J ALAMO APRN) Diagnosis(es): 1. Chest pain 2. COPD (chronic obstructive pulmonary disease) Plan: Patient seen and agree with above note. (Washington Isidro MD) at 0935 at 1224
--- NOTE | 2016-12-14 09:39 | PHARMACY CLINIC NOTE ---
Patient Demographics Patient Demographics Admission date: 12/13/16 Date: 12/14/16 Time: 0938 Allergies Coded Allergies: No Known Allergies (12/13/16) HEIGHT- FT: 5 IN: 9.00 K.504 VTE General Information Labs: Laboratory Tests 12/13 1929 Hematology Hgb (14.1 - 18.0 g/dL) 14.7 Hct (42.0 - 52.0 %) 44.2 Plt Count (142 - 424 K/mm3) 318 Disclaimer The following section includes nursing documentation that has been pulled in for pharmacy review. Patient's VTE score: 2 Patient's VTE Risk: VERY LOW RISK Clinical trial participant? No VTE prophylaxis [id number] VTE prophylaxis ordered? Yes Type of prophylaxis/treatment: TJ at 0938
--- NOTE | 2016-12-14 10:09 | RADIOLOGY REPORT PS360 ---
CARDIAC CATHETERIZATION DATE OF CATHETERIZATION:12/14/2016 9:16 AM PROCEDURES: 1. Left heart catheterization 2. Left ventriculogram 3. Selective coronary angiogram 4. Drug-eluting stent deployment to the mid LAD INDICATION FOR TEST: 1. Unstable angina 2. Abnormal Myoview anterior ischemia 3. Coronary artery disease Informed consent was obtained prior to the procedure. COMPLICATIONS: None ESTIMATED BLOOD LOSS: Less than 10 ml. TECHNIQUE: One percent lidocaine used to anesthetize the right anterior aspect of the wrist. The right radial artery was accessed via the Seldinger technique. A 6 [place] sheath was placed in the right radial artery. 2.5 mg of verapamil, 800 mcg of nitroglycerin and 5000 U Heparin were given through the arterial sheath. A trap catheter was used to perform left heart catheterization left ventriculogram and selective coronary angiogram. At the end of the diagnostic angiogram and additional 2000 units of heparin was administered intravenously along with 180 mg of oral Brilinta. An [employer] left guide catheter was used intubate the left main artery and a [employer] wire was placed distally. The ACT measured 276 seconds therefore an additional 2000 units of heparin was administered intravenously. A 2.5 x 15 mm resolute [place] stent was deployed at 18 mati reducing the concentric 80% stenosis to 0%. 800 mcg of intracoronary nitroglycerin was administered and the wire was pulled back into the guide. Repeat angiography demonstrated wide patency of the LAD with excellent proximal and transitioning from the stent. At the end of the procedure the closing ACT measured. The apparatus was removed the sheath was removed good hemostasis was achieved using TR banding patient was transferred to the postop holding area in stable condition ANGIOGRAPHIC RESULTS: 1. The left main artery normal 2. The left anterior descending artery has proximal 10% stenoses and a mid vessel concentric 70-80% stenosis. The first diagonal artery is a large vessel and has a mid vessel concentric 70-80% stenosis at a 2.25 mm segment 3. The circumflex artery is nondominant and has a proximal 70-80% stenosis and a 2.5 mm first obtuse marginal artery 4. The right coronary artery is a dominant vessel and has a long proximal concentric 30-40% stenosis with additional mid vessel 30% stenoses. The posterior descending artery has a proximal 60-70% stenosis at a 2.25 mm segment 5. The PAULINO ventriculogram reveals normal estimated at 55-60% 6. The left ventricular end-diastolic pressure 15 mmHg IMPRESSION: 1. Severe disease in the mid LAD which corresponded to the abnormal Myoview 2. Persistent moderate to severe stenosis and a large first obtuse marginal artery 3. Persistent moderate to severe stenosis in the moderate sized posterior ascending artery 4. Preserved ejection fraction 55% 5. Mildly elevated LVEDP 6. Successful stenting of the mid LAD, severe disease reduced to 0% with 1 drug-eluting stent PLAN: 1. Brilinta and aspirin 2. Lipitor in order to achieve an LDL less than 55 3. Risk factor modification 4. Maximize antianginal medications 5. I would like to treat the first obtuse marginal artery medically at this time. It is a large vessel and certainly amenable to stenting however given the Myoview demonstrated anterior ischemia I am confident the mid LAD lesion was the culprit. Should patient continue to have angina pectoris I would recommend free him back and stenting the obtuse marginal artery 6. The diagonal artery should be managed medically as should the PDA at this time
[2016-12-15 02:00] VITALS: BP 116/70
[2016-12-15 04:00] VITALS: BP 110/73
[2016-12-15 06:00] VITALS: BP 114/71
[2016-12-15 07:41] VITALS: BP 114/71
--- NOTE | 2016-12-15 08:54 | ACUTE CARE PROGRESS NOTE (QUA) ---
Progress Notes Subjective Date 12/15/16 Time 0851 Note 61 yo WM in bed in NAD. No chest pains. Feeling better. Objective Findings Last VS-Temp:98.1 B/P:114/71 Pulse:67 Resp:18 SaO2:96 ROOM AIR Last weight lbs:140 oz:4 K.616 Method:Bed Scales Exam General appearance: alert, awake, no acute distress Cardiovascular: regular rate & rhythm Respiratory: clear to auscultation Reviewed: medications, vital signs, lab results Assessment/Plan Problem List 1. Chest pain Qualifiers: Chest pain type: precordial pain Qualified Code: R07.2 - Precordial pain 2. COPD (chronic obstructive pulmonary disease) 3. CAD (coronary artery disease), [place] coronary artery Assessment/Plan: s/p RACIEL to LAD. On DAPT, along with metoprolol and norvasc. Qualifiers: [place] vs. transplanted heart: [place] heart Associated angina: with unstable angina Qualified Code: I25.110 - Atherosclerotic heart disease of [place] coronary artery with unstable angina pectoris Patient condition Stable Plan: Home today. DAPT, statin, metoprolol and norvasc. Follow up in one week. This inpt stay is expected to cross 2 MNs from start of care Yes at 0854
--- NOTE | 2016-12-15 08:54 | ACUTE CARE PROGRESS NOTE (QUA) ---
Progress Notes Subjective Date 12/15/16 Time 0851 Note 61 yo WM in bed in NAD. No chest pains. Feeling better. Objective Findings Last VS-Temp:98.1 B/P:114/71 Pulse:67 Resp:18 SaO2:96 ROOM AIR Last weight lbs:140 oz:4 K.616 Method:Bed Scales Exam General appearance: alert, awake, no acute distress Cardiovascular: regular rate & rhythm Respiratory: clear to auscultation Reviewed: medications, vital signs, lab results Assessment/Plan Problem List 1. Chest pain Qualifiers: Chest pain type: precordial pain Qualified Code: R07.2 - Precordial pain 2. COPD (chronic obstructive pulmonary disease) 3. CAD (coronary artery disease), [place] coronary artery Assessment/Plan: s/p RACIEL to LAD. On DAPT, along with metoprolol and norvasc. Qualifiers: [place] vs. transplanted heart: [place] heart Associated angina: with unstable angina Qualified Code: I25.110 - Atherosclerotic heart disease of [place] coronary artery with unstable angina pectoris Patient condition Stable Plan: Home today. DAPT, statin, metoprolol and norvasc. Follow up in one week. This inpt stay is expected to cross 2 MNs from start of care Yes at 0854
--- NOTE | 2016-12-15 08:55 | ACUTE CARE PROGRESS NOTE (QUA) ---
Progress Notes Subjective Date 12/15/16 Time 0852 Note Patient feels well this morning, wants to go home. Objective Findings Laboratory Tests 12/14/16 0948: POC Activ Clotting Time 370 *H 12/14/16 0941: POC Activ Clotting Time 271 *H Vital Signs Date Time Temp Pulse Resp B/P Pulse O2 O2 Flow FiO2 Ox Delivery Rate 12/15 813 98.1 12/15 0741 98.7 67 18 114/71 96 12/15 0600 67 114/71 93 ROOM AIR 12/15 0420 98.7 12/15 0400 98.1 61 18 110/73 94 12/15 0200 70 116/70 94 ROOM AIR 12/15 0003 98.5 12/14 2200 70 108/67 96 ROOM AIR 12/14 2000 98.2 12/15 1999 98.2 80 18 129/61 92 12/14 1800 80 18 128/82 94 ROOM AIR 12/14 1720 64 20 110/70 94 12/14 1620 65 18 113/72 95 12/14 1600 98.4 79 18 123/75 98 12/14 1520 75 18 115/79 95 12/14 1459 98.4 79 18 123/75 98 ROOM AIR 12/14 1445 74 18 120/75 12/14 1444 98.4 74 18 120/75 98 ROOM AIR 12/14 1420 76 18 103/62 94 12/14 1320 90 18 116/75 94 12/14 1250 80 18 130/78 95 12/14 1230 74 18 120/75 98 ROOM AIR 12/14 1228 70 18 113/70 98 ROOM AIR 12/14 1228 69 18 118/67 98 ROOM AIR 12/14 1227 67 18 110/66 98 ROOM AIR 12/14 1227 73 18 117/73 97 ROOM AIR 12/14 1226 71 16 105/68 97 ROOM AIR 12/14 1226 71 18 124/77 97 ROOM AIR 12/14 1225 73 16 118/69 91 ROOM AIR 12/14 1225 76 18 141/72 98 ROOM AIR 12/14 1010 98.4 81 16 135/80 97 12/14 0935 16 I&O Past 24 Hrs-ending at 0700 12/15 0700 Intake Total 1250 Output Total Balance 1250 Last VS-Temp:98.1 B/P:114/71 Pulse:67 Resp:18 SaO2:96 ROOM AIR Last weight lbs:140 oz:4 K.616 Method:Bed Scales Exam General appearance: alert, awake, no acute distress Cardiovascular: regular rate & rhythm Respiratory: clear to auscultation Extremities: no peripheral edema Assessment/Plan Problem List 1. Chest pain Status: Resolved 2. COPD (chronic obstructive pulmonary disease) Status: Chronic 3. CAD (coronary artery disease), [place] coronary artery 4. S/P coronary artery stent placement This inpt stay is expected to cross 2 MNs from start of care Yes Comments: Plan discharge home today, f/u with cardiology in 1 week. at 0855
[2016-12-15] MEDS ORDERED: LIPITOR40 MG PO (08:58)
[2016-12-15] MEDS ORDERED: BRILINTA90 M1 PO (08:58)
[2016-12-15] MEDS ORDERED: NITROSTAT0.4 MG SL (08:59)
[2016-12-15] MEDS ORDERED: ASPIR-LOW81 MG PO (08:59)
[2016-12-15] MEDS ORDERED: METOPROLOL SUCC25 M2 PO (09:00)
[2016-12-15] MEDS ORDERED: AMLODIPINE5 M1 PO (09:00)
[2016-12-15 11:05] VITALS: BP 114/71
== END 2016-12-15 11:05 | disposition home or self-care (01) ==
LOC: ER 19:32 → 2ND 22:49
PROVIDERS: Emergency Medicine; Internal Medicine
PROC: B2111ZZ Fluoroscopy of Multiple Coronary Arteries using Low Osmolar Contrast (ICD-10-PCS; 2016-12-14)
PROC: B2151ZZ Fluoroscopy of Left Heart using Low Osmolar Contrast (ICD-10-PCS; 2016-12-14)
PROC: 027034Z Dilation of Coronary Artery, One Artery with Drug-eluting Intraluminal Device, Percutaneous Approach (ICD-10-PCS; 2016-12-14)
PROC: 4A023N7 Measurement of Cardiac Sampling and Pressure, Left Heart, Percutaneous Approach (ICD-10-PCS; principal; 2016-12-14 09:45)
DX: I25.110 Atherosclerotic heart disease of native coronary artery with unstable angina pectoris (principal); R94.39 Abnormal result of other cardiovascular function study; J44.9 Chronic obstructive pulmonary disease, unspecified
CPT/HCPCS: C1725; C1769; C1876; G0378; J1644; Q9967

== ENCOUNTER → 2017-01-18 | Outpatient (CLI) | payer OTHER ==
[~2017-01-18] MED LIST: AMLODIPINE5 M1 PO; ASPIR-LOW81 MG PO; BRILINTA90 M1 PO; LIPITOR40 MG PO; METOPROLOL SUCC25 M2 PO; NITROSTAT0.4 MG SL; SPIRIVA RE2.5 MCG/Ac IH; SPIRIVA18 MCG IH; VENTOLIN H0.09 MG/Ac IH
[2017-01-18 14:23] LABS: BILIRUBIN, INDIRECT 0.23 mg/dL (0-0.9)
== END ==
LOC: LAB 11:47
PROVIDERS: Internal Medicine
DX: I25.10 Atherosclerotic heart disease of native coronary artery without angina pectoris (principal); Z95.5 Presence of coronary angioplasty implant and graft; E78.5 Hyperlipidemia, unspecified